=== PATIENT | female | born 1980 | race Asian ===

== ENCOUNTER 2017-08-11 16:35 | Emergency (ER) | payer OTHER ==
[2017-08-11 17:15] VITALS: BP 149/93
--- NOTE | 2017-08-11 18:20 | UC ---
Respiratory Complaint HPI - HPI Summary HPI Summary: Patient presents to the with CC of cough with yellow sputum production, fevers, sweats, sore throat x 1 week. 10 days for cough. Patient states her daughter was recently seen in the ED with 105 temp and stayed in the hospital for 3 days. Unknown source of the fever. She is otherwise healthy and denies any travel. Denies N/V/C/D. Unknown highest temp. Sweats intermittently at bedtime. Denies back pain or urinary symptoms. Denies chest pain or SOB. - History of Current Complaint Chief Complaint: UCRespiratory Stated Complaint: URI Time Seen by Provider: 08/11/17 17:56 Hx Obtained From: Patient Hx Last Menstrual Period: 4 MONTHS AGO ?: No Onset/Duration: Sudden Onset Timing: Constant Severity Initially: Moderate Severity Currently: Moderate Pain Intensity: 5 Pain Scale Used: 0-10 Numeric Character: Cough: Productive Aggravating Factors: Deep Breaths, Recumbent Position Alleviating Factors: Upright Position Associated Signs And Symptoms: Positive: Negative - Risk Factors Pulmonary Embolism Risk Factors: Negative Cardiac Risk Factors: Negative Pseudomonas Risk Factors: Negative Tuberculosis Risk Factors: Negative - Allergies/Home Medications Allergies/Adverse Reactions: Allergies Allergy/AdvReac Type Severity Reaction Status Date / Time No Known Allergies Allergy Verified 08/11/17 17:15 Home Medications: Home Medications Ibuprofen TAB* [Advil TAB*] 200 mg PO ONCE PRN 08/11/17 [History Confirmed 08/11] guaiFENesin LIQ* [Robitussin*] 10 ml PO ONCE PRN 08/11/17 [History Confirmed ] PMH/Surg Hx/FS Hx/Imm Hx Previously Healthy: Yes - Surgical History Surgical History: Yes Surgery Procedure, Year, and Place: - Family History Known Family History: Positive: Unknown - Social History Occupation: Employed Full-time Lives: With Family Alcohol Use: None Substance Use Type: None Smoking Status (MU): Never Smoked Tobacco Review of Systems Constitutional: Negative ENT: Negative Respiratory: Shortness Of Breath, Cough Cardiovascular: Negative Gastrointestinal: Negative Motor: Negative Neurovascular: Negative Neurological: Negative Psychological: Negative Is Patient Immunocompromised?: No All Other Systems Reviewed And Are Negative: Yes Physical Exam Triage Information Reviewed: Yes Appearance: Well-Appearing, Well-Nourished Vital Signs: Initial Vital Signs Temp 98 F 08/11/17 17:11 Pulse 103 08/11/17 17:11 Resp 16 08/11/17 17:11 BP 149/93 08/11/17 17:11 Pulse Ox 99 08/11/17 17:11 Vital Signs Reviewed: Yes Eye Exam: Normal Eyes: Positive: Conjunctiva Clear Neck exam: Normal Neck: Positive: Supple, No Lymphadenopathy Respiratory Exam: Normal Respiratory: Positive: Chest non-tender, Lungs clear Cardiovascular Exam: Normal Cardiovascular: Positive: RRR Musculoskeletal Exam: Normal Musculoskeletal: Positive: Strength Intact Psychological: Positive: Normal Response To Family Skin Exam: Normal UC Diagnostic Evaluation - Laboratory O2 Sat by Pulse Oximetry: 99 Respiratory Course/Dx - Course Course Of Treatment: Patient sent to xray. Negative for acute findings. Lungs CTA. Patient seems to be congested with copious mucous production on PE. Rapid flu negative. rapid strep negative. VS stable except she is tachy on arrival at 103. She is slightly diaphoretic. She is discharged home with zithromax, robittusin with codeine and return precautions. - Differential Dx/Diagnosis Differential Diagnosis/HQI/PQRI: Bronchitis, Sinusitis Provider Diagnoses: Bronchitis Discharge - Discharge Plan Condition: Stable Disposition: HOME Prescriptions: Azithromycin TAB* [Zithromax TAB (Z-KANG) 250 mg #6 tabs] 2 tab PO .TODAY, THEN 1 DAILY #1 kang guaiFENesin/CODIEN 100MG-10MG* [Robitussin AC 100Mg-10Mg*] 10 ml PO Q6H PRN # 120 ml MDD 40 PRN Reason: Cough Patient Education Materials: Acute Bronchitis (ED) Referrals: Edi Chatterjee MD [Primary Care Provider] - Additional Instructions: Follow up with your PCP as needed Tylenol 650mg three times daily for discomfort Robitussin with codeine at bedtime and during the day only if you feel your cough is not well controlled with over the counter medications. Azithromycin x 6 days. Start tomorrow. Humidifier in the home will help Drink plenty of fluids Rest
--- NOTE | 2017-08-11 18:54 | RAD ---
INDICATION: Cough for 10 days. COMPARISON: Comparison is made with a prior chest x-ray study from March 14, 2010. TECHNIQUE: Dual-energy PA and lateral views of the chest were obtained. FINDINGS: The heart is within normal limits in size. Mediastinal and hilar contours appear within normal limits. The lungs are clear. No pleural effusion is present. IMPRESSION: NO EVIDENCE FOR ACTIVE CARDIOPULMONARY DISEASE.
== END 2017-08-11 19:18 | disposition home or self-care (01) ==
LOC: UCEAST 16:35
DX: J40 Bronchitis, not specified as acute or chronic (principal)
CPT/HCPCS: 71020; 87502; 87651; 99212; G0463

== ENCOUNTER 2017-12-06 09:54 | Emergency (ER) | payer OTHER ==
[2017-12-06] MEDS ORDERED: Ibuprofen TAB* 600 MG PO ONE (11:53)
--- NOTE | 2017-12-06 12:32 | RAD ---
HISTORY: Left knee, medial pain and swelling COMPARISONS: None VIEWS: 4, Frontal, lateral, axial, and oblique views of the left knee FINDINGS: BONE DENSITY: Normal. BONES: There is no displaced fracture. JOINTS: There is no arthropathy. There is no suprapatellar joint effusion or lipohemarthrosis. ALIGNMENT: There is no dislocation. SOFT TISSUES: Unremarkable. OTHER FINDINGS: None. IMPRESSION: NO ACUTE OSSEOUS INJURY. IF SYMPTOMS PERSIST, RECOMMEND REPEAT IMAGING.
--- NOTE | 2017-12-06 13:16 | UC ---
Davidson Parson Stephanie, scribed for Artemio Francis MD on 12/06/17 at 1234 . Knee Pain HPI - HPI Summary HPI Summary: The pt is a 37 y/o F presenting to with L knee pain that began last night. The pain occurred s/p standing from a sitting position. Symptoms include a clicking sound in the knee. The pt reports history of L knee pain without treatment. She sometimes wears a knee support brace. Pt reports using hot compresses and massaging the knee s/p injury. The pt denies numbness. Aggravating factors include ambulation. The pt rates her pain as an 8 in severity. - History of Current Complaint Chief Complaint: UCLowerExtremity Stated Complaint: KNEE PAIN Time Seen by Provider: 12/06/17 11:44 Hx Obtained From: Patient Hx Last Menstrual Period: 11/18/17 ?: No Onset/Duration: Lasting Days - 1, Still Present Pain Intensity: 8 Pain Scale Used: 0-10 Numeric Aggravating Factor(s): Movement, Other - ambulation Alleviating Factor(s): Nothing Associated Signs And Symptoms: Negative: Numbness Able to Bear Weight: Yes - Allergies/Home Medications Allergies/Adverse Reactions: Allergies Allergy/AdvReac Type Severity Reaction Status Date / Time No Known Allergies Allergy Verified 12/06/17 09:59 PMH/Surg Hx/FS Hx/Imm Hx - Surgical History Surgical History: Yes Surgery Procedure, Year, and Place: - Family History Known Family History: Positive: Unknown - Pt denies family history when asked. - Social History Occupation: Employed Full-time Lives: With Family Alcohol Use: None Substance Use Type: None Smoking Status (MU): Never Smoked Tobacco Review of Systems Constitutional: Negative Skin: Negative Eyes: Negative ENT: Negative Respiratory: Negative Cardiovascular: Negative Gastrointestinal: Negative Genitourinary: Negative Motor: Negative Neurovascular: Negative Musculoskeletal: Other: - pain in L knee, clicking sound in L knee Neurological: Negative Psychological: Negative All Other Systems Reviewed And Are Negative: Yes Physical Exam Triage Information Reviewed: Yes Vital Signs: Initial Vital Signs Temp 99 F 12/06/17 10:00 Pulse 112 12/06/17 10:00 Resp 18 12/06/17 10:00 BP 136/72 12/06/17 10:00 Pulse Ox 100 12/06/17 10:00 Vital Signs Reviewed: Yes - Additional Comments General: well-appearing, no pain distress Skin: warm, color reflects adequate perfusion, dry Head: normal Eyes: EOMI, ELLY ENT: normal Neck: supple, nontender Respiratory: CTA, breath sounds present Cardiovascular: RRR Abdomen: soft, nontender Bowel: present Musculoskeletal: strength/ROM intact, L knee swelling and tenderness on medial and anterior medial aspect. Neg Mcmurrays. Neurological: normal, sensory/motor intact, A&O x3 Psychological: affect/mood appropriate Diagnostics - Radiology Knee XRay Xray Interpretation: No Acute Changes Radiology Interpretation Completed By: Radiologist - NO ACUTE OSSEOUS INJURY. IF SYMPTOMS PERSIST, RECOMMEND REPEAT IMAGING. Knee Pain Course/Dx - Course Course Of Treatment: DISCUSSED RESULTS WITH PATIENT. SHE DECLINED CRUTCHES. F/ U PMD OR SPORTS MEDICINE. - Differential Dx/Diagnosis Provider Diagnoses: LEFT KNEE PAIN Discharge - Discharge Plan Condition: Stable Disposition: HOME Prescriptions: HYDROcodone/ACETAMIN 5-325 MG* [Hargill 5-325 TAB*] 1 tab PO Q4H PRN #15 tab MDD 6 PRN Reason: Pain Ibuprofen TAB* [Motrin TAB* 600 MG] 600 mg PO Q6H PRN #30 tab PRN Reason: Pain Patient Education Materials: Knee Pain (ED) Forms: *Work Release Referrals: [facility] [Provider Group] [facility] [Outside] No Primary Care Phys,NOPCP [Primary Care Provider] - Additional Instructions: FOLLOW UP WITH YOUR DOCTOR AND SPORTS MEDICINE. GET RECHECKED FOR ANY WORSENING OF YOUR CONDITION OR QUESTIONS OR CONCERNS. The documentation as recorded by the Davidson eason Stephanie accurately reflects the service I personally performed and the decisions made by me, Artemio Francis MD.
[2017-12-06 13:19] VITALS: BP 137/81
== END 2017-12-06 13:17 | disposition home or self-care (01) ==
LOC: UCEAST 09:54
DX: M25.562 Pain in left knee (principal)
CPT/HCPCS: 99212; A9270-GY; G0463

== ENCOUNTER 2018-06-03 16:41 | Emergency (ER) | payer SELFPAY ==
[2018-06-03] MEDS ORDERED: Ketorolac INJ* 30 MG/ML 1 ML VIAL IV PUSH ONE (18:16)
[2018-06-03] MEDS ORDERED: NS 0.9% 1000 ML* 1,000 ML IV ONE (18:16)
--- NOTE | 2018-06-03 18:38 | RAD ---
INDICATION: Cough and fever. Shortness of breath. LEFT posterior chest pain. COMPARISON: August 11, 2017 TECHNIQUE: Dual energy PA and routine lateral views of the chest were obtained. REPORT: Mild alveolar consolidation at the LEFT lung base posteriorly with partial obscuration of the hemidiaphragm. Negative for pleural effusion or pneumothorax. The heart, pulmonary vasculature, and mediastinal contours are unremarkable. IMPRESSION: #. Mild alveolar consolidation at the LEFT lung base consistent with pneumonia given the clinical context.
[2018-06-03] MEDS ORDERED: Azithromycin TAB* 250 MG PO ONE (19:23)
--- NOTE | 2018-06-03 19:39 | ED ---
Respiratory - HPI Summary HPI Summary: Patient is a 37-year-old otherwise healthy female presenting to the with 4 days worsening cough and fever of 101. She also endorses a headache. Denies any cough with production, abdominal pain, shortness of breath or chest pain. She's been taking Tylenol and ibuprofen with moderate amount of relief. - History of Current Complaint Chief Complaint: UCGeneralIllness Stated Complaint: COUGH, HEADACHE Time Seen by Provider: 06/03/18 17:23 Hx Obtained From: Patient Onset/Duration: Gradual Onset Timing: Constant Initial Severity: Moderate Current Severity: Moderate Pain Intensity: 8 Character: Cough (Nonproductive) Sputum Amount: Small Sputum Color: White Aggravating Factor(s): URI Alleviating Factor(s): Nothing Associated Signs and Symptoms: Fever, URI - Allergy/Home Medications Allergies/Adverse Reactions: Allergies Allergy/AdvReac Type Severity Reaction Status Date / Time No Known Allergies Allergy Verified 06/03/18 17:14 PMH/Surg Hx/FS Hx/Imm Hx Previously Healthy: Yes Endocrine/Hematology History: Denies: Hx Diabetes, Hx Thyroid Disease Cardiovascular History: Reports: Hx Hypertension Respiratory History: Denies: Hx Asthma, Hx Chronic Obstructive Pulmonary Disease (COPD) GI History: Denies: Hx Ulcer - Surgical History Surgery Procedure, Year, and Place: - Immunization History Hx Pertussis Vaccination: No Immunizations Up to Date: Unable to Obtain/Confirm Infectious Disease History: No Infectious Disease History: Denies: Hx Clostridium Difficile, Hx Hepatitis, Hx Human Immunodeficiency Virus (HIV), Hx of Known/Suspected MRSA, Hx Shingles, Hx Tuberculosis, Hx Known/ Suspected VRE, Hx Known/Suspected VRSA, History Other Infectious Disease, Traveled Outside the [place] in Last 30 Days - Family History Known Family History: Positive: Unknown - Pt denies family history when asked. - Social History Occupation: Unemployed Lives: With Family Alcohol Use: None Hx Substance Use: No Substance Use Type: Reports: None Hx Tobacco Use: No Smoking Status (MU): Never Smoked Tobacco Review of Systems Positive: Fever, Skin Diaphoresis. Negative: Chills, Fatigue Negative: Photophobia, Blurred Vision Negative: Palpitations, Chest Pain Positive: Cough. Negative: Shortness Of Breath Genitourinary: Negative Positive: no symptoms reported, see HPI Musculoskeletal: Negative Skin: Negative Positive: Headache All Other Systems Reviewed And Are Negative: Yes Physical Exam Triage Information Reviewed: Yes Vital Signs On Initial Exam: Initial Vitals Temp Pulse Resp BP Pulse Ox 99.8 F 110 20 134/89 97 06/03/18 17:10 06/03/18 17:10 06/03/18 17:10 06/03/18 17:10 06/03/18 17:10 Vital Signs Reviewed: Yes Appearance: Positive: Well-Appearing, Well-Nourished Skin: Positive: Warm, Skin Color Reflects Adequate Perfusion Head/Face: Positive: Normal Head/Face Inspection Eyes: Positive: EOMI, ELLY, Conjunctiva Clear Neck: Positive: Supple, No Lymphadenopathy Respiratory/Lung Sounds: Positive: Rhonchi - throughout, Wheezes Cardiovascular: Positive: RRR, Pulses are Symmetrical in both Upper and Lower Extremities Musculoskeletal: Positive: Normal, Strength/ROM Intact Neurological: Positive: Sensory/Motor Intact, Alert, Oriented to Person Place, Time Psychiatric: Positive: Normal, Affect/Mood Appropriate Diagnostics - Vital Signs Vital Signs Temp Pulse Resp BP Pulse Ox 06/03/18 17:10 99.8 F 110 20 134/89 97 - Laboratory Lab Statement: Any lab studies that have been ordered have been reviewed, and results considered in the medical decision making process. Disposition - Course Course Of Treatment: During the course of treatment, the patient is evaluated for fever and cough. X-ray obtained which shows mild alveolar consolidation at the left lung base consistent with pneumonia given the clinical context. She is given azithromycin 500 mg in the UC and prescription for azithromycin 250 mg once daily 4 days as well as Robitussin with codeine for cough. She will have a follow-up x-ray in 5 days, rest and fluids. - Diagnoses Provider Diagnoses: Pneumonia Discharge - Sign-Out/Discharge Documenting (check all that apply): Patient Departure - Discharge Plan Condition: Stable Disposition: HOME Prescriptions: Azithromycin TAB* [Zithromax TAB (Z-KANG) 250 mg #6 tabs] 250 mg PO DAILY #4 tab guaiFENesin/CODIEN 100MG-10MG* [Robitussin AC 100Mg-10Mg*] 10 ml PO Q4H #180 [facility] [place] 60 Patient Education Materials: Bacterial Pneumonia (ED) Referrals: No Primary Care Phys,NOPCP [Primary Care Provider] - Additional Instructions: Robitussin 2 teaspoons up to every 4 hours as needed for cough Azithromycin 250mg once daily x 4 days (starting tomorrow) Rest Plenty of fluids Follow-up with your PCP for a repeat x-ray in 5 days to assure improvement of the pneumonia - Billing Disposition and Condition Condition: STABLE Disposition: Home Attestation Statement User Type: Provider - I was available for consult. This patient was seen by the FLORINDA. The patient was not presented to, seen by, or examined by me. -Francesco
[2018-06-03 20:11] VITALS: BP 132/88
== END 2018-06-03 19:35 | disposition home or self-care (01) ==
LOC: UCEAST 16:41
DX: J18.9 Pneumonia, unspecified organism (principal); R51 Headache
CPT/HCPCS: 71046; 99212; A9270-GY; G0463; J1885

== ENCOUNTER → 2019-06-02 01:28 | Emergency (ER) | payer OTHER ==
[~2019-06-02 01:28] MED LIST: oxyCODONE/Acetamin 5/325 MG* TAB ONE
[2019-06-02 04:57] VITALS: BP 127/79
--- NOTE | 2019-06-02 06:55 | ED ---
- HPI Summary HPI Summary: 38 year old F [place] [facility] [place] by with a chief complaint of vaginal bleeding and cramping since 24 hours ago due to a miscarriage. Patient is G 4 P1 A 2. Patient reports that her last US was yesterday at her OBGYN which revealed that her baby was 7 weeks , her baby has no heartbeat, and she was having a miscarriage despite her thinking she was 11 weeks . Patient reports no tissue and just blood passing. Patient reports that her OBGYN told her if she was experiencing a lot of bleeding to report to the ED leading to her arrival. Symptoms aggravated by nothing. Symptoms alleviated by nothing. - History of Current Complaint Chief Complaint: EDOBProblems Stated Complaint: MISCARRIAGE PER PT Time Seen by Provider: 06/02/19 04:40 Hx Obtained From: Patient Onset/Duration: Started Days Ago - 1 Timing: Constant Pain Intensity: 5 Character: Cramping Aggravating Factors: Nothing Alleviating Factors: Nothing Associated Signs and Symptoms: Positive: Vaginal Bleeding or Discharge - Assessment Hx Now: No - Allergies/Home Medications Allergies/Adverse Reactions: Allergies Allergy/AdvReac Type Severity Reaction Status Date / Time No Known Allergies Allergy Verified 06/02/19 01:44 PMH/Surg Hx/FS Hx/Imm Hx Endocrine/Hematology History: Denies: Hx Diabetes, Hx Thyroid Disease Cardiovascular History: Reports: Hx Hypertension Respiratory History: Denies: Hx Asthma, Hx Chronic Obstructive Pulmonary Disease (COPD) GI History: Denies: Hx Ulcer - Surgical History Surgery Procedure, Year, and Place: Infectious Disease History: No Infectious Disease History: Denies: Hx Clostridium Difficile, Hx Hepatitis, Hx Human Immunodeficiency Virus (HIV), Hx of Known/Suspected MRSA, Hx Shingles, Hx Tuberculosis, Hx Known/ Suspected VRE, Hx Known/Suspected VRSA, History Other Infectious Disease, Traveled Outside the [place] in Last 30 Days - Family History Known Family History: Negative: Diabetes - Social History Alcohol Use: None Hx Substance Use: No Substance Use Type: Reports: None Hx Tobacco Use: No Smoking Status (MU): Never Smoked Tobacco Review of Systems Positive: Abdominal Pain - cramping Positive: discharge - vaginal bleeding All Other Systems Reviewed And Are Negative: Yes Physical Exam - Summary Physical Exam Summary: VITAL SIGNS: Reviewed. GENERAL: Patient is a well-developed and nourished FEMALE who is lying comfortable in the stretcher. Patient is not in any acute respiratory distress. HEAD AND FACE: No signs of trauma. No ecchymosis, hematomas or skull depressions. No sinus tenderness. EYES: PERRLA, EOMI x 2, No injected conjunctiva, no nystagmus. EARS: Hearing grossly intact. Ear canals and tympanic membranes are within normal limits. MOUTH: Oropharynx within normal limits. NECK: Supple, trachea is midline, no adenopathy, no JVD, no carotid bruit, no c- spine tenderness, neck with full ROM CHEST: Symmetric, no tenderness at palpation LUNGS: Clear to auscultation bilaterally. No wheezing or crackles. CVS: Regular rate and rhythm, S1 and S2 present, no murmurs or gallops appreciated. ABDOMEN: Soft, non-tender. No signs of distention. No rebound no guarding, and no masses palpated. Bowel sounds are normal. EXTREMITIES: FROM in all major joints, no edema, no cyanosis or clubbing. NEURO: Alert and oriented x 3. No acute neurological deficits. Speech is normal and follows commands. SKIN: Dry and warm Pelvic Exam: 1. Not able to palpate uterus bc patient body habitus 2. speculum exam: showed cervix is closed posterior and pt has minimal bleeding - Physical Exam Triage Information Reviewed: Yes Vital Signs Reviewed: Yes Diagnostics - Vital Signs Vital Signs Temp Pulse Resp BP Pulse Ox 06/02/19 03:15 98.9 F 89 18 127/79 98 06/02/19 01:38 98.2 F 83 18 160/108 99 - Laboratory Lab Statement: Any lab studies that have been ordered have been reviewed, and results considered in the medical decision making process. Course/Dx - Course Course Of Treatment: 38 year old F presents to [facility] accompanied by with a chief complaint of vaginal bleeding and cramping since 24 hours ago due to a miscarriage. Patient is G 4 P1 A 2. Patient reports that her last US was yesterday at her OBGYN which revealed that her baby was 7 weeks , her baby has no heartbeat, and she was having a miscarriage despite her thinking she was 11 weeks . Patient reports no tissue and just blood passing. Physical exam shows no abnormalities but Pelvic exam revealed. 1. Not able to palpate uterus bc patient body habitus. 2. speculum exam: showed cervix is closed posterior and patient has minimal bleeding. Patient was diagnosed missed yesterday by OBGYN. Physician discusses discharge with patient who agrees with plan. Patient will be discharged home and will follow up with OBGYN today, 06/02/19. - Diagnoses Provider Diagnoses: Missed ab Discharge - Sign-Out/Discharge Documenting (check all that apply): Patient Departure - discharge Patient Received Moderate/Deep Sedation with Procedure: No - Discharge Plan Condition: Stable Disposition: HOME - Attestation Statements Document Initiated by Scribe: Yes Documenting Scribe: Hiral Olsen Provider For Whom Aurelianoibe is Documenting (Include Credential): Amanda Oconnell MD Scribe Attestation: IDon Alison Kim, scribed for Amanda Oconnell MD on 06/02/19 at 0722. Status of Scribe Document: Ready
== END | disposition home or self-care (01) ==
LOC: ED 01:28
DX: O02.1 Missed abortion (principal); O16.9 Unspecified maternal hypertension, unspecified trimester; Z3A.00 Weeks of gestation of pregnancy not specified
CPT/HCPCS: 99282; A9270-GY

== ENCOUNTER 2019-09-12 17:29 | Emergency (ER) | payer OTHER, MEDICAID ==
--- NOTE | 2019-09-12 19:56 | UC ---
Complaint Female HPI - HPI Summary HPI Summary: 39-year-old woman comes in with a chief complaint of vaginal bleeding and cramping. This started 3 days ago. Her periods have been irregular for some time. Her last period was in June 2019. On 02 September she had 2 urine tests that were positive. She traveled on an airplane and then on her return trip on Thursday she started with bleeding and cramping. No fevers or chills. She's been using a pad every couple of hours. She saw some clots yesterday. She feels like the bleeding is slowing down a little bit. She's been taking ibuprofen which does help with the pain. She has been lightheaded when she stands up. - History Of Current Complaint Chief Complaint: [facility]CGU Stated Complaint: PERSONAL ISSUE Time Seen by Provider: 09/12/19 19:05 Hx Last Menstrual Period: june, is bleeding again now Pain Intensity: 8 - Allergies/Home Medications Allergies/Adverse Reactions: Allergies Allergy/AdvReac Type Severity Reaction Status Date / Time No Known Allergies Allergy Verified 09/12/19 18:20 Home Medications: Home Medications Ibuprofen TAB* [Motrin TAB* 600 MG] 400 mg PO Q6H PRN 09/12/19 [History Confirmed 09/12/19] PMH/Surg Hx/FS Hx/Imm Hx Previously Healthy: Yes - blood type is O+ - Surgical History Surgical History: Yes Surgery Procedure, Year, and Place: - Family History Known Family History: Positive: Unknown - Pt denies family history when asked. Negative: Diabetes - Social History Alcohol Use: None Substance Use Type: None Smoking Status (MU): Never Smoked Tobacco Review of Systems All Other Systems Reviewed And Are Negative: Yes Constitutional: Positive: Other - SEE HPI Skin: Positive: Negative Eyes: Positive: Negative ENT: Positive: Negative Respiratory: Positive: Negative Cardiovascular: Positive: Negative Gastrointestinal: Positive: Abdominal Pain Genitourinary: Positive: Negative Motor: Positive: Negative Neurovascular: Positive: Negative Musculoskeletal: Positive: Negative Neurological: Positive: Negative Psychological: Positive: Negative Is Patient Immunocompromised?: No Physical Exam Triage Information Reviewed: Yes Appearance: Well-Appearing, No Pain Distress, Well-Nourished Vital Signs: Initial Vital Signs Temp 98.3 F 09/12/19 18:15 Pulse 92 09/12/19 18:15 Resp 18 09/12/19 18:15 BP 135/87 09/12/19 18:15 Pulse Ox 99 09/12/19 18:15 Vital Signs Reviewed: Yes Eye Exam: Normal Eyes: Positive: Conjunctiva Clear Neck: Positive: Supple Respiratory: Positive: Lungs clear, Normal breath sounds, No respiratory distress Cardiovascular: Positive: RRR Abdomen Description: Positive: Other: - Patient mild tenderness to palpation the suprapubic right lower quadrant left lower quadrant areas. Bowel Sounds: Positive: Present Musculoskeletal: Positive: Strength Intact, ROM Intact Neurological: Positive: Alert Psychological: Positive: Normal Response To Family Skin Exam: Normal Complaint Female Dx - Course Course Of Treatment: On examination patient is in no acute distress. She does have tenderness when I push on her lower abdomen. Her orthostatics are normal although she does get slightly dizzy when she goes from sitting to standing. She has no fever. No sign of UTI. Although she is continuing to bleed she reports it is decreasing. She had 2 positive urine tests on September 02 and today her urine is negative. Patient's blood type is O+. Most probably this is a spontaneous . I discussed the case with Dr. Frost the [facility] otm consultant. At this time with the vital signs being stable and the patient improving and the urine test negative the plan will be to have the patient follow up with [facility] in the next 1-2 weeks as long as she continues to improve. Follow-up sooner if not improving. Go to the emergency department if not improving or worse. This was all discussed with the patient and her . - Differential Dx/Diagnosis Provider Diagnosis: Menorrhagia, Spontaneous , Pelvic pain Discharge ED - Sign-Out/Discharge Documenting (check all that apply): Patient Departure All imaging exams completed and their final reports reviewed: No Studies - Discharge Plan Condition: Stable Disposition: HOME Patient Education Materials: Menorrhagia (ED), Miscarriage (ED), Pelvic Pain in Women (ED) Forms: *Work Release Referrals: Sarita Mix MD [Primary Care Provider] - Sujata Frost MD [Medical Doctor] - Additional Instructions: [facility]. CALL TOMORROW TO ARRANGE FOLLOW UP. GO TO THE EMERGENCY DEPARTMENT IF YOUR CONDITION DOES NOT IMPROVE OR WORSENS; PAIN, FEVER, YOU FEEL ILL, YOU FEEL LIKE PASSING OUT, WORSE OR PROLONGED BLEEDING OR ANY QUESTIONS OR CONCERNS. - Billing Disposition and Condition Condition: STABLE Disposition: Home
[2019-09-12 21:22] VITALS: BP 145/84
== END 2019-09-12 20:59 | disposition home or self-care (01) ==
LOC: UCEAST 17:29
DX: O03.9 Complete or unspecified spontaneous abortion without complication (principal); N92.0 Excessive and frequent menstruation with regular cycle; R10.2 Pelvic and perineal pain
CPT/HCPCS: 81003; 84702; 99211; G0463